=== PATIENT | male | born 1970 | race Caucasian/White ===

== ENCOUNTER → 2018-01-13 | Outpatient (CLI) | payer BC | LOC: BMCIMAGING 11:03 | PROVIDERS: ATTEND Family Medicine | DX: I82.4Z1 Acute embolism and thrombosis of unspecified deep veins of right distal lower extremity (principal) ==

== ENCOUNTER → 2018-08-16 | Outpatient (CLI) | payer BC | LOC: FIMAGING 13:03 | PROVIDERS: ATTEND Family Medicine | DX: Z00.00 Encounter for general adult medical examination without abnormal findings (principal) ==